=== PATIENT | female | born 1990 | race Caucasian/White ===

== ENCOUNTER 2024-05-06 16:14 | Emergency (ER) | payer MEDICAID, SELFPAY ==
[2024-05-06 16:18] VITALS: BP 118/84; PULSE 74; RESP 16; TEMP 36.5; O2SAT 100
[2024-05-06 17:01] VITALS: BP 111/72; O2SAT 100
--- NOTE | 2024-05-06 17:13 | ED.FEMALEGU ---
HPI - Female Genitourinary General Chief complaint: Vaginal Bleeding Stated complaint: 6 WKS PREG VAG BLEEDING Time Seen by Provider: 05/06/24 17:05 History of Present Illness HPI Narrative: 34-year-old female, LMP 03/21/2024, currently approximately 6 weeks presents to emergency department for vaginal bleeding in . Patient had a positive test 2 days ago at home. States she went to [place] emergency department because she did not believe this test. She had a positive blood test at that time was discharged home advised to follow-up with OBGYN. She contacted an OB talisha and Richy Paulson and was advised to come to the ED if she had any vaginal bleeding. States she had some brown tinged discharge earlier today but around 3:45 p.m. she went to the bathroom and when she wiped she noticed bright red and dark red blood on the toilet paper. When she wiped a 2nd time she said it was just brown tinged discharge. She has not had any bleeding since. She states she was while she was Rh negative with her last child is concerned that she may be rejecting this child. She reports suprapubic abdominal cramping. She denies concern for STDs, nausea vomiting, fever. Denies history of bleeding dyscrasias. states she has an appointment with OBGYN, Dr. Sloan, in 5 days. States her hCG level 2 days ago while she was at [place] was 303. Related Data Allergies Allergy/AdvReac Type Severity Reaction Status Date / Time No Known Allergies Allergy Verified 05/06/24 17:25 Review of Systems Review of Systems: All systems reviewed & are unremarkable except as noted in HPI and below Exam Narrative: GENERAL: Well-appearing, well-nourished, and in no acute distress. HEAD: Normocephalic, atraumatic. EYES: PERRLA and EOMI. ENT: Nares clear, no rhinorrhea or epistaxis. Mucous membranes moist. NECK: Supple. CHEST: Clear to auscultation. No respiratory distress. HEART: Regular rate and rhythm. No murmur heard. Normal peripheral pulses. ABDOMEN: Soft, nontender, nondistended, normal active bowel sounds. no rebound, guarding or rigidity. : external genitalia unremarkable. Vaginal vault with scant amount of blood in the vaginal vault. cervical os closed. No tissue, products of conception or clots visualized. No adnexal masses or tenderness. EXTREMITIES: Normal range of motion. No edema. SKIN: Warm, dry, no rash. NEURO: No focal deficits. Alert and oriented x3 Course Vital Signs Vital signs: Vital Signs Temperature 97.7 F 05/06/24 16:18 Pulse Rate 74 05/06/24 16:18 Respiratory Rate 16 05/06/24 16:18 Blood Pressure 118/84 05/06/24 16:18 Pulse Oximetry 100 05/06/24 16:18 Temperature 97.7 F 05/06/24 16:18 Pulse Rate 74 05/06/24 16:18 Respiratory Rate 16 05/06/24 16:18 Blood Pressure 115/77 05/06/24 17:46 Pulse Oximetry 100 05/06/24 17:46 MDM - Female Genitourinary MDM Narrative Medical decision making narrative: 34-year-old female who is currently 6 weeks presents to the emergency department for blood on her toilet paper when she wiped at 3:45 p.m. today. Triage vitals are stable. Exam significant for the above. CBC without leukocytosis. Hemoglobin 11.3 with a normal MCV, no prior for comparison. Chemistries are unremarkable. Beta hCG is 53.47. Coags are normal. UA unremarkable. Blood type A negative, RhoGAM provided. Beta hCG is 53.47 Which has decreased from reported 303 2 days ago while at [place]. Workup discussed with the patient. Bleeding is very mild on exam. Workup is consistent with incomplete . I advised her to call her OBGYN to follow-up closely and have beta-hCG rechecked in 48 hours. I discussed strict ED return precautions including inappropriate blood loss and signs or symptoms of septic . She is agreeable to plan verbalized understanding. Discharged in stable condition. Lab Data 05/06/24 17:28
[2024-05-06 17:16] VITALS: BP 113/82; O2SAT 95
[2024-05-06] MEDS: ACETAMINOPHEN 500 MG TABLET 1000 MG PO (17:26)
[2024-05-06 17:35] LABS: Basophils Percent Auto 0.7 % (0.2-1.2); Eosinophils Percent Auto 0.9 % (0-4.4); Hematocrit 33.6 % (37.0-47.0); Hemoglobin 11.3 g/dL (12.0-15.0); Immature Granulocyte Absolute 0.01 K/mm3 (0.00-0.031); Immature Granulocyte Percent A 0.2 % (0-0.5); Lymphocytes Absolute Auto 1.66 K/mm3 (0.9-3.2); Lymphocytes Percent Auto 36.3 % (18.3-44.2); Mean Corpuscular HGB Conc 33.6 g/dl (32-36); Mean Corpuscular Hemoglobin 32.3 pg (26-34); Monocytes Absolute Auto 0.4 K/mm3 (0.1-0.6); Monocytes Percent Auto 8.1 % (2.6-8.5); Neutrophils Absolute Auto 2.5 K/mm3 (1.3-6.7); Neutrophils Percent Auto 53.8 % (45.5-73.1); Platelet Count Result 191 k/mm3 (150-375); White Blood Count 4.6 K/mm3 (4.5-10.0)
[2024-05-06 17:46] VITALS: BP 115/77; O2SAT 100
[2024-05-06 17:46] LABS: Alanine Aminotransferase 17 U/L (6-35); Albumin Level 4.2 g/dL (3.5-5.1); Alkaline Phosphatase 68 U/L (38-126); Anion Gap 8 mmol/L (4-12); Aspartate Amino Transferase 20 U/L (14-36); Blood Urea Nitrogen 9 mg/dL (7-17); Carbon Dioxide 28 mmol/L (22-30); Chloride 102 mmol/L (98-107); Estimated CRCL calculation 111 ml/min; Estimated Glomerular Filt Rate > 60; Glucose 87 mg/dL (65-110); Potassium 3.5 mmol/L (3.4-5.0); Sodium 138 mmol/L (137-145)
[2024-05-06 17:47] LABS: Partial Thromboplastin Time 27.4 Seconds (22.3-36.8); Prothrombin Time 13.8 Seconds (11.1-14.7)
[2024-05-06 18:02] LABS: Beta HCG Quantitative 53.47 mIU/ML
[2024-05-06 18:12] LABS: Appearance Urine Clear (Clear); Bilirubin Urine Negative (Negative); Blood Urine Negative (Negative); Color Urine Yellow (Yellow); Glucose Urine UA Negative (Negative); Ketones Urine Negative (Negative); Leukocyte Esterase Ur Negative LEU/UL (Negative); Nitrate Urine Negative (Negative); Protein Urine Negative (Negative); Specific Grav Ur 1.022 (1.001-1.035); Urobilinogen Urine 0.2 mg/dL (<2.0); pH Urine 5.5 (5.0-9.0)
[2024-05-06 18:13] LABS: Add Urine Microscopic? NO
[2024-05-06] MEDS: RHO(D) IMMUNE GLOBULIN 300 MCG/2 ML SYRINGE IM (19:27)
== END 2024-05-06 19:30 | disposition home or self-care (01) ==
PROVIDERS: Emergency Provider Physician Assistant
DX: O03.4 Incomplete spontaneous abortion without complication (principal)
CPT/HCPCS: 36415; 80053; 81003; 84702; 85025; 85461; 85610; 85730; 86850; 86900; 86901; 90384; 96372; 99284; A9270; J2790

== ENCOUNTER 2024-05-18 09:02 | Outpatient (CLI) | payer MEDICAID, SELFPAY ==
--- NOTE | ~2024-05-18 | US_ITS ---
US OB <=14 wk fetus w TV Ordering provider: Amor Sloan MD History: . O02.1 - Missed . Comparison: None. Technique: Transabdominal and endovaginal ultrasound of the pelvis (Doppler ultrasound interrogation techniques used as needed for this exam.) FINDINGS: CERVIX: Normal. UTERUS: Measures 9.2x 3.5x 5.1 cm in length which is within normal limits and is anteverted. No myom etrial masses. ENDOMETRIUM: Normal in thickness measuring 8 mm. No intrauterine seen. No endometrial darline s, cysts or fluid. CUL DE SAC: Minimal free fluid. RIGHT OVARY: Normal in size measuring 5.1x 2.2x 4.4 cm. Normal echotexture. Doppler vascular flow pre sent. Follicles are noted with the largest measures 1.8 cm.. LEFT OVARY: Normal in size measuring 2.9x 1.4x 2.5 cm. Normal echotexture. Doppler vascular flow pres ent. Follicles are noted. ADNEXA: Normal. No mass. IMPRESSION: No intrauterine . Minimal fluid in the cul-de-sac. Bilateral ovarian follicles with the larg est on the right side measuring 1.8 cm. Otherwise, normal pelvic ultrasound. Reviewed, dictated and finalized at location A. IMPRESSION: No intrauterine . Minimal fluid in the cul-de-sac. Bilateral ovarian f ollicles with the largest on the right side measuring 1.8 cm. Otherwise, normal pelvic ultrasound.
== END 2024-05-18 09:03 ==
LOC: MICIMG 09:02
PROVIDERS: PCP Obstetrics & Gynecology; Visit Provider Obstetrics & Gynecology
DX: O02.1 Missed abortion (principal); N88.8 Other specified noninflammatory disorders of cervix uteri
CPT/HCPCS: 76801; 76817

== ENCOUNTER 2024-05-18 09:40 | Outpatient (CLI) | payer MEDICAID, SELFPAY ==
[2024-05-18 13:17] LABS: Beta HCG Quantitative < 2.39 mIU/ML
== END 2024-05-18 09:41 | disposition home or self-care (01) ==
PROVIDERS: PCP Obstetrics & Gynecology; Visit Provider Obstetrics & Gynecology
DX: O02.1 Missed abortion (principal)
CPT/HCPCS: 36415; 84702

== ENCOUNTER 2024-06-09 16:54 | Outpatient (CLI) | payer MEDICAID, SELFPAY | END 2024-06-09 16:55 | disposition home or self-care (01) | LOC: ANHLAB 16:56 | PROVIDERS: PCP Obstetrics & Gynecology; Visit Provider Obstetrics & Gynecology | DX: N91.2 Amenorrhea, unspecified (principal) | CPT/HCPCS: 36415; 84702 ==

== ENCOUNTER 2024-06-12 08:37 | Outpatient (CLI) | payer MEDICAID, SELFPAY | END 2024-06-12 08:38 | disposition home or self-care (01) | PROVIDERS: Visit Provider Obstetrics & Gynecology | DX: O20.0 Threatened abortion (principal) | CPT/HCPCS: 36415; 84702 ==

== ENCOUNTER 2024-07-27 10:31 | Outpatient (CLI) | payer OTHER, SELFPAY ==
[2024-07-27 10:54] LABS: Basophils Percent Auto 0.3 % (0.2-1.2); Eosinophils Absolute Auto 0.1 K/mm3 (0-0.3); Eosinophils Percent Auto 0.8 % (0-4.4); Hematocrit 34.4 % (37.0-47.0); Hemoglobin 11.9 g/dL (12.0-15.0); Immature Granulocyte Absolute 0.02 K/mm3 (0.00-0.031); Immature Granulocyte Percent A 0.3 % (0-0.5); Lymphocytes Absolute Auto 1.45 K/mm3 (0.9-3.2); Mean Corpuscular HGB Conc 34.6 g/dl (32-36); Mean Corpuscular Volume 95.3 fl (80-100); Monocytes Absolute Auto 0.5 K/mm3 (0.1-0.6); Monocytes Percent Auto 6.3 % (2.6-8.5); Neutrophils Absolute Auto 5.3 K/mm3 (1.3-6.7); Neutrophils Percent Auto 72.3 % (45.5-73.1); Platelet Count Result 205 k/mm3 (150-375); Red Blood Count 3.61 M/mm3 (4.2-5.4); Red Cell Distribution Width 12.5 % (11.5-14.5); White Blood Count 7.3 K/mm3 (4.5-10.0)
[2024-07-27 12:12] LABS: Hepatitis B Surface Antigen Negative (Negative); Rubella IgG Antibody 8.8 IU/ML
[2024-07-28 12:09] LABS: CMV IgG Antibody >10.00 U/mL
[2024-07-28 13:17] LABS: Rapid Plasma Reagin Non-Reactive (NonReactive)
[2024-08-07 08:25] LABS: CF Result NEGATIVE
== END 2024-07-27 10:32 | disposition home or self-care (01) ==
PROVIDERS: Student in an Organized Health Care Education/Training Program; Visit Provider Obstetrics & Gynecology
DX: N94.89 Other specified conditions associated with female genital organs and menstrual cycle (principal)
CPT/HCPCS: 36415; 81220; 84702; 85025; 86592; 86644; 86747; 86762; 86787; 86850; 86880; 86900; 86901; 87086; 87340

== ENCOUNTER 2024-10-08 09:32 | Emergency (ER) | payer MEDICAID, SELFPAY ==
--- NOTE | ~2024-10-08 | XR_ITS ---
XR shoulder RT min 2V 10/08/2024 10:21 Indication: Right shoulder pain after fall from ladder Procedure: 4 views right shoulder Comparison: No prior studies for comparison. Findings: There is a comminuted nondisplaced distal right clavicular fracture. Acromioclavicular join t intact. No other fractures or subluxation. No soft tissue abnormality. Impression: 1: Comminuted nondisplaced distal right clavicular fracture with intact acromioclavicular joint. Reviewed, dictated and finalized at location B. ING TECHNICIAN Impression: 1: Comminuted nondisplaced distal right clavicular fracture with intact acromio clavicular joint.
[2024-10-08 09:46] VITALS: BP 112/78; PULSE 81; RESP 16; TEMP 36.4; O2SAT 100
--- NOTE | 2024-10-08 09:55 | PC.NURSE ---
Patient reports she is currently taking penicillin d/t a dental infection.
[2024-10-08 10:21] VITALS: BP 111/71; PULSE 83; RESP 16; TEMP 36.3; O2SAT 100
--- NOTE | 2024-10-08 10:27 | ED.GENADULT ---
HPI - General Adult General Chief complaint: Extremity Injury, Upper Stated complaint: fell off a ladder, R shoulder pain 22 weeks preg Time Seen by Provider: 10/08/24 09:47 History of Present Illness HPI narrative: Patient is a 34-year-old female who presents ER with right shoulder pain. She was on the 3rd rung of a ladder yesterday messing with [place] lights when she is supposed to be feeding the dog when she fell landing on her posterior right shoulder. Sudden onset pain. She did not strike her head or lose consciousness. She is 22 weeks but did not fall on her belly. No vaginal bleeding or vaginal discharge. Has difficulty with using her right arm so she came to the ER today for further evaluation. Related Data Home Medications ?Medication ?Instructions ?Recorded ?Confirmed ?Last Taken ?Type vits no.126-ferrous fum tablet PO 07/13/24 10/05/24 Unknown History 28 mg iron-folic acid 800 mcg tablet (Classic ) Allergies Allergy/AdvReac Type Severity Reaction Status Date / Time No Known Allergies Allergy Verified 10/08/24 09:54 Review of Systems Review of Systems: All systems reviewed & are unremarkable except as noted in HPI and below Constitutional: Constitutional: Reports no additional constitutional complaints Cardiovascular: Cardiovascular: Reports no additional cardiovascular complaints Respiratory: Respiratory: Reports no additional respiratory complaints Musculoskeletal: Musculoskeletal: Reports arthralgias and Reports joint swelling Neurologic: Reports system reviewed and no additional complaints, except as documented PMF Past Medical History Medical History Suppression of menses Threatened Anxiety and depression Surgical History Surgical History History of lung biopsy 12 + years ago Family History Family History Sibling Diabetes mellitus Father Cerebrovascular accident Grandparent Breast cancer paternal grandmother Cerebrovascular accident paternal grand father Other Carcinoma of colon Social History Social History Smoking status: Never smoker Second hand tobacco smoke exposure: No Smoking end date: 10/21/20 Alcohol intake: never Substance use: former Substance use type: marijuana Last use: 2010 Do You Feel Safe in your Home?: Yes Lack of Transportation: No Lack of Food: Never True Current Housing: I Have Housing Concerned About Future Housing: No Difficulty Paying Gas/Electric Bills: No Difficulty Paying for Meds: No Currently Unemployed: No Education: Trade/Vocational Certificate Difficulty w/ Childcare or Family Care: No Living arrangements: other Additional living arrangements comments: single lives with boyfriend and child Occupation/Education: occupation 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 HEAD: Normocephalic, atraumatic. ENT: Mucous membranes moist. CHEST: Clear to auscultation. No respiratory distress. HEART: Regular rate and rhythm. Normal peripheral pulses. EXTREMITIES: Limited range of motion at the right shoulder due to swelling and pain at the lateral aspect of clavicle. No abnormality to the left upper extremity. Abdomen: Normal appearance without bruising rub SKIN: Warm, dry, no rash. NEURO: Alert and oriented x3. PSYCH: Normal mood and affect. Course Course Emergency Course: patient given a sling. Informed of results. Discharge home. Vital Signs Vital signs: Vital Signs Temperature 97.6 F 10/08/24 09:46 Pulse Rate 81 10/08/24 09:46 Respiratory Rate 16 10/08/24 09:46 Blood Pressure 112/78 10/08/24 09:46 Pulse Oximetry 100 10/08/24 09:46 Oxygen Delivery Room Air 10/08/24 09:46 Temperature 98.2 F 10/08/24 12:00 Pulse Rate 78 10/08/24 12:00 Respiratory Rate 17 10/08/24 12:00 Blood Pressure 114/69 10/08/24 12:00 Pulse Oximetry 100 10/08/24 12:00 Oxygen Delivery Room Air 10/08/24 10:21 Medical Decision Making Vital Signs Vital Signs: Vital Signs Temperature 97.6 F 10/08/24 09:46 Pulse Rate 81 10/08/24 09:46 Respiratory Rate 16 10/08/24 09:46 Blood Pressure 112/78 10/08/24 09:46 Pulse Oximetry 100 10/08/24 09:46 Oxygen Delivery Room Air 10/08/24 09:46 Temperature 98.2 F 10/08/24 12:00 Pulse Rate 78 10/08/24 12:00 Respiratory Rate 17 10/08/24 12:00 Blood Pressure 114/69 10/08/24 12:00 Pulse Oximetry 100 10/08/24 12:00 Oxygen Delivery Room Air 10/08/24 10:21 Imaging Data Radiologist's impression: ITS Impressions Shoulder X-Ray 10/08/24 10:23 Impression: 1: Comminuted nondisplaced distal right clavicular fracture with intact acromioclavicular joint. Discharge Plan Discharge Clinical Impression: Broken clavicle Patient Disposition: Home, Self-Care Condition: Stable Instructions: Clavicle Fracture (ED) Additional Instructions: Follow-up with Orthopedic surgery. Wear sling for comfort. Return the ER if you have additional concerns. Patient Language: Croatian Prescriptions: No Action Classic 28 mg iron- 800 mcg tablet PO metoclopramide HCl [Reglan] 5 mg tablet 5 mg PO DAILY Qty: 30 1RF Follow-up/Referrals: Kelivn Falk MD [Physician] - 1 Week UNKNOWN,DOCTOR [Primary Care Provider] -
[2024-10-08] MEDS: HYDROcodone/acetaminophen (*CRX) 5-325 MG TABLET 1 TAB PO (11:59)
[2024-10-08 12:00] VITALS: BP 114/69; PULSE 78; RESP 17; TEMP 36.8; O2SAT 100
== END 2024-10-08 12:36 | disposition home or self-care (01) ==
PROVIDERS: Emergency Provider Emergency Medicine
DX: O9A.212 Injury, poisoning and certain other consequences of external causes complicating pregnancy, second trimester (principal); S42.034A Nondisplaced fracture of lateral end of right clavicle, initial encounter for closed fracture; W11.XXXA Fall on and from ladder, initial encounter; Z3A.22 22 weeks gestation of pregnancy
CPT/HCPCS: 73030; 99284; A4565; A9270

== ENCOUNTER 2024-11-17 06:33 | Outpatient (RCR) | payer OTHER, SELFPAY ==
[2024-11-16 11:58] LABS: Basophils Percent Auto 0.1 % (0.2-1.2); Eosinophils Percent Auto 0.6 % (0-4.4); Hematocrit 31.2 % (37.0-47.0); Hemoglobin 10.4 g/dL (12.0-15.0); Immature Granulocyte Absolute 0.02 K/mm3 (0.00-0.031); Immature Granulocyte Percent A 0.3 % (0-0.5); Lymphocytes Absolute Auto 1.05 K/mm3 (0.9-3.2); Lymphocytes Percent Auto 15.4 % (18.3-44.2); Mean Corpuscular HGB Conc 33.3 g/dl (32-36); Mean Corpuscular Hemoglobin 32.1 pg (26-34); Mean Corpuscular Volume 96.3 fl (80-100); Mean Platelet Volume 9.5 fl (7.4-10.4); Monocytes Absolute Auto 0.3 K/mm3 (0.1-0.6); Monocytes Percent Auto 4.4 % (2.6-8.5); Neutrophils Absolute Auto 5.4 K/mm3 (1.3-6.7); Neutrophils Percent Auto 79.2 % (45.5-73.1); Platelet Count Result 196 k/mm3 (150-375); Red Blood Count 3.24 M/mm3 (4.2-5.4); Red Cell Distribution Width 12.5 % (11.5-14.5); White Blood Count 6.8 K/mm3 (4.5-10.0)
[2024-11-16 12:52] LABS: HIV 1/2 Ab P24 Ag Result Negative (Negative)
[2024-11-16 14:43] LABS: Glucose 1 Hour PP 50gm Dose 123 mg/dL
[2024-11-17 10:46] LABS: Rapid Plasma Reagin Non-Reactive (NonReactive)
[2024-11-17] MEDS: RHO(D) IMMUNE GLOBULIN 300 MCG/2 ML SYRINGE IM (18:49)
== END 2024-11-17 06:40 | disposition home or self-care (01) ==
LOC: ANHLAB 06:33
PROVIDERS: Visit Provider Obstetrics & Gynecology
DX: Z11.4 Encounter for screening for human immunodeficiency virus [HIV] (principal); Z11.3 Encounter for screening for infections with a predominantly sexual mode of transmission; O36.0190 Maternal care for anti-D [Rh] antibodies, unspecified trimester, not applicable or unspecified; Z3A.00 Weeks of gestation of pregnancy not specified
CPT/HCPCS: 36415; 82947; 85025; 85461; 86592; 86703; 86850; 86900; 86901; 90384; 96372; G0432; J2790

== ENCOUNTER 2025-01-06 15:37 | Outpatient (RCR) | payer OTHER, SELFPAY ==
[2025-01-06 16:42] VITALS: BP 103/68; PULSE 87
--- NOTE | 2025-01-06 19:40 | PM.OBTRLD ---
OB - Triage/Final Diagnosis Visit Information Date of evaluation: 01/06/25 Reason for evaluation: decreased movement and other (fall) Comments/Additional reasons for admission: I have assessed the risk for this patient, Kayleighrachel Maria, and determined that she would benefit from observation care. Evaluation Vital signs: Vital Signs - 24 hr 01/06/25 16:42 Pulse Rate 87 Blood Pressure [Left Arm] 103/68
== END 2025-04-06 23:59 | disposition home or self-care (01) ==
LOC: ANHOBOP 15:37
PROVIDERS: Visit Provider Obstetrics & Gynecology
DX: O36.8130 Decreased fetal movements, third trimester, not applicable or unspecified (principal); O99.891 Other specified diseases and conditions complicating pregnancy; W19.XXXA Unspecified fall, initial encounter; Z3A.35 35 weeks gestation of pregnancy
CPT/HCPCS: 59025

== ENCOUNTER 2025-02-08 06:46 | Inpatient (IN) | payer OTHER, SELFPAY ==
[2025-02-08] VITALS (38 sets, daily range): BP systolic 60–147; BP diastolic 15–113; PULSE 65–92; RESP 16; TEMP 36.6–36.9; O2SAT 98; BMI 46.6
--- NOTE | 2025-02-08 07:17 | LDADM ---
This patient, Kayleigh Maria, was admitted to Labor/Delivery/Recovery 108 on 02/08/25 at 06:46. Plans for labor, pain management and were discussed with patient. Patient/family oriented to hospital policies and general routines including ID bracelet, bed and alarms, visiting hours, pain management, procedures, bathroom and other care routines, personal items, smoking policy, room service/diet and guest tray routines, security routines, and visiting hours. Patient/Family are encouraged to report perceived risks to care and to ask questions if they do not understand what they are told or what they should do. See OBIX for further documentation.
--- NOTE | 2025-02-08 07:18 | WPDHPUPDATE1 ---
History and Physical Update Update Date/Time: 02/08/25 07:18 34 yo at 39w6d who presents for IOL. Her has been uncomplicated thus far. History and Physical has been reviewed, including an updated exam of the patient. There are NO changes in the patient's condition. Risks, benefits, and alternatives have been discussed and questions answered. Patient agrees to proceed with procedure. A/P admit to L&D routine admission orders Rh, neg- will need rhogam PP GBS positive, will initiate antibiotics with pitocin continuos EFM
[2025-02-08 07:38] LABS: Basophils Percent Auto 0.3 % (0.2-1.2); Eosinophils Absolute Auto 0.1 K/mm3 (0-0.3); Eosinophils Percent Auto 1.7 % (0-4.4); Hematocrit 31.5 % (37.0-47.0); Hemoglobin 10.5 g/dL (12.0-15.0); Immature Granulocyte Absolute 0.03 K/mm3 (0.00-0.031); Immature Granulocyte Percent A 0.5 % (0-0.5); Lymphocytes Absolute Auto 1.39 K/mm3 (0.9-3.2); Lymphocytes Percent Auto 21.3 % (18.3-44.2); Mean Corpuscular HGB Conc 33.3 g/dl (32-36); Mean Corpuscular Volume 92.9 fl (80-100); Mean Platelet Volume 11.5 fl (7.4-10.4); Monocytes Absolute Auto 0.6 K/mm3 (0.1-0.6); Monocytes Percent Auto 8.6 % (2.6-8.5); Neutrophils Absolute Auto 4.4 K/mm3 (1.3-6.7); Neutrophils Percent Auto 67.6 % (45.5-73.1); Platelet Count Result 175 k/mm3 (150-375); Red Blood Count 3.39 M/mm3 (4.2-5.4); Red Cell Distribution Width 13.1 % (11.5-14.5); White Blood Count 6.5 K/mm3 (4.5-10.0)
[2025-02-08] MEDS: AMPICILLIN 2 GM/NS 100 ML 2 GM/100 ML BAG IVPB (08:00)
[2025-02-08] MEDS: OXYTOCIN 30 UNITS/NS 500 ML 30 UNITS/500 ML BAG IV CONT (08:00)
[2025-02-08] MEDS: LACTATED RINGERS 1,000 ML 125 ML IV CONT (08:01)
[2025-02-08 08:19] LABS: Syphilis IgG/IgM Antibody Negative (Negative)
[2025-02-08 08:27] LABS: HIV 1/2 Ab P24 Ag Result Negative (Negative)
[2025-02-08] MEDS: AMPICILLIN 1 GM/NS 50 ML 1 GM/50 ML BAG IVPB ×2 (11:46→15:51)
--- NOTE | 2025-02-08 18:10 | P.PCNOB_ITS ---
OB - Vaginal Delivery Note Procedure Delivery date: 02/08/25 Induction method: Per Pitocin Protocol Delivery augmentation: Rupture of Membranes and Pitocin Delivery monitor: External FHT and Internal Uterine Route of delivery: Episiotomy description: None Laceration Description: Labial (Right) Delivery repair: vicryl Specimen: No Quantitative Blood Loss (ml): 100 Anesthesia type: None Disposition: Floor Complications: No immediate complications Narrative: Patient pushed for a spontaneous vaginal delivery. A nuchal cord was noted and delivered through. The fetus was delivered atraumatically and placed on the maternal abdomen. The cord was clamped and cut after 1 minute of life. The cord was double clamped and cut and a segment of cord was collected for cord gases. Cord blood was collected for blood type and Coomb's testing. The placenta delivered spontaneously and was noted to be intact. The perineum was inspected and noted to be intact. A right superficial labial laceration was noted. The area was anesthetized with 1% lidocaine. The laceration was re-approximated with 3-0 vicryl in a running locking fashion. The uterus was firm and good hemostasis was noted. [place] Baby Date of : 02/08/25 Time of : 17:42 Gestational Age by Date: 39 gender: Male presentation: vertex position: Right Occiput Anterior Placenta delivery description: Spontaneous Cord Vessel Description: 3 Vessels and Nuchal Cord score one minute: 9 score five minutes: 9
[2025-02-08] MEDS: OXYTOCIN 30 UNITS/NS 500 ML 30 UNITS/500 ML BAG 125 UNITS IV CONT (18:16)
[2025-02-08] MEDS: IBUPROFEN 600 MG TABLET PO (20:03)
[2025-02-08] MEDS: WITCH HAZEL 40 PADS 1 PAD TOPICAL (20:04)
[2025-02-08] MEDS: BENZOCAINE 20% AER SPR (*SP) 56 GM CAN 1 SPRAY TOPICAL (20:04)
--- NOTE | 2025-02-08 20:20 | OBPPTRN ---
Patient transferred to post room #286 via wheelchair. Oriented to unit, room, information board, rooming in, admission packet and security measures. Patient verbalizes understanding.
[2025-02-09 00:30] VITALS: BP 104/62; PULSE 59; RESP 14; TEMP 36.3; O2SAT 98
[2025-02-09 05:51] LABS: Hematocrit 29.5 % (37.0-47.0)
[2025-02-09 08:10] VITALS: BP 115/72; PULSE 64; RESP 18; TEMP 36.7; O2SAT 97
--- NOTE | 2025-02-09 09:00 | PC.NURSE ---
Introductions were made, then consulted with patient to assess needs related to . Discussed with mother her?plans to feed?her and the?experience so far. He has latched well several times and he is sleepy as expected for a . Resources provided for inpatient and outpatient services with the feeding sheet, mom/baby guide and name written on the communication board. Mother voiced understanding of information and will call if there is a request for assistance. Reported to the Primary RN.
[2025-02-09] MEDS: MULTIVIT/MIN/PREN/FOL AC/IRON TABLET 1 TAB PO (09:17)
--- NOTE | 2025-02-09 09:46 | PM.OBPNVD ---
OB - PN: Subj Subjective Date/time seen: 02/09/25 09:46 Patient comments: no complaints, pain well controlled and tolerating diet [place] feeding status: exclusively breast feeding Narrative: patient doing well this AM. No complaints. Pain is well controlled. She reports minimal bleeding. She is ambulating and voiding without difficulty. She is tolerating PO. She denies N/V, fever, chills. OB - PN: Obj Data Labs 02/09/25 04:55 Labs: Laboratory Results - last 24 hr 02/09/25 04:55 Hgb 10.0 L Hct 29.5 L OB - PN A/P Plan day: 1 Plan: routine care Comments: patient doing well H/H stable pt requests infant circumcision. Risks, benefits, alternatives discussed continue routine care Time Spent With Patient Time: Total time spent is greater than 50% in coordination of care (as documented) at patient's floor/unit and/or counseling patient: Time with patient: less than 15 minutes Review of Systems Review of Systems: All systems reviewed & are unremarkable except as noted in HPI and below Exam Const: General: comfortable and no acute distress Resp: Effort & Inspection: normal respiratory effort Cardio: Rate: regular rate GI: GI Palp: Yes Soft to palpation and No Tenderness to palpation present (GI) Auscultation: normal bowel sounds Other: fundus firm and below umbilicus. Psych: Affect: normal affect
--- NOTE | 2025-02-09 11:30 | PC.NURSE ---
Mother called out for a latch check. She was working to wake when I entered the room. He has been sleepy this morning. Mom positioned him in a cross cradle hold and we turned him more tummy to tummy for good alignment. It took a few tries before baby opened wide enough to latch and he suckled briefly and stopped. Mom holds her breast nicely and latched baby independently. He maintained the latch but would just hold the nipple in his mouth without sucking. We stimulated him and with some effort got him to suckle off and on. Mom is encouraged to continue to stimulate him at the breast for as long as he is able, even if it's only 5 minutes. He has been feeding well and is a term, healthy so no further intervention is needed at this time. Mom breastfed her first baby for a year. She states that she will not have to return to work soon but that she struggled to express milk with a pump last time. We reviewed that it can take practice and that some mother's will have trouble expressing milk to any pump. We reviewed flange sizing and we will measure her before discharge. RN updated.
--- NOTE | 2025-02-09 11:56 | P.DS_ITS ---
DS: Admitting Diagnosis Discharge Date 02/09/25 Admitting Diagnosis intrauterine at term DS: Discharge Diagnosis Discharge Diagnosis (1) Normal vaginal delivery: Code(s): O80 - Encounter for full-term uncomplicated delivery Status: Acute OB - DS: Summary OB Procedures : None OB Procedures Intrapartum: Spontaneous Vag Delivery OB Procedures: : None Peripartum Data Delivery Method: Natural Vaginal Laceration Description: Labial (Right) Episiotomy description: None complications: none Status at Discharge Functional status at discharge: independent ambulation Overall status at discharge: patient is back to baseline Time Spent with Patient Time attestation: Total time spent providing and/or coordinating discharge services: Time spent: Less than 30 minutes Exam Const: General: comfortable and no acute distress Resp: Effort & Inspection: normal respiratory effort Auscultation: clear to auscultation bilaterally Cardio: Rate: regular rate GI: GI Palp: Yes Soft to palpation Auscultation: normal bowel sounds Other: Fundus firm below umbilicus Psych: Appearance: grossly normal Mental Status: mental status grossly normal Affect: normal affect DS: Data Data Completed and Pending Labs on day of discharge: Labs from last 24 hours 02/09/25 04:55 Hgb 10.0 L Hct 29.5 L Discharge Plan Discharge Discharging Clinician: Stanley Landaverde Patient Disposition: Home Activity: as tolerated and pelvic rest Diet: regular Patient Instructions: Antibiotic Form, Vaginal Delivery (DC) Patient Language: Armenian Stand Alone Forms: General Discharge Information Follow-up/Referrals: Stanley Landaverde MD [Physician] - Discharge Medications: New acetaminophen 500 mg tablet 500 mg PO Q6H PRN (Reason: pain) Qty: 30 0RF ibuprofen 600 mg tablet 600 mg PO Q6H PRN (Reason: pain) Qty: 30 0RF Continued Classic 28 mg iron- 800 mcg tablet 1 tablet PO DAILY Date of admission: 02/08/25 06:46 Primary Care Provider: UNKNOWN,DOCTOR Admitting Provider: Stanley Landaverde Attending physician on admission: Stanley Landaverde Condition: Stable
[2025-02-09 12:50] VITALS: BP 121/61; PULSE 72; RESP 16; TEMP 36.4; O2SAT 96
[2025-02-09 19:36] VITALS: BP 111/64; PULSE 71; RESP 16; TEMP 36.6; O2SAT 96
[2025-02-11 11:28] VITALS: BP 113/65; PULSE 67; RESP 18; TEMP 36.7; O2SAT 98
== END 2025-02-09 21:55 | disposition home or self-care (01) | DRG 560 ==
LOC: ANHLDR 06:47 → ANHOB2 20:35
PROVIDERS: Admitting Provider Student in an Organized Health Care Education/Training Program; Visit Provider Student in an Organized Health Care Education/Training Program
DX: O99.824 Streptococcus B carrier state complicating childbirth (principal); Z37.0 Single live birth; Z3A.39 39 weeks gestation of pregnancy; O70.0 First degree perineal laceration during delivery; O69.81X0 Labor and delivery complicated by cord around neck, without compression, not applicable or unspecified; O26.893 Other specified pregnancy related conditions, third trimester; Z67.91 Unspecified blood type, Rh negative
CPT/HCPCS: 36415; 85014; 85018; 85025; 86593; 86703; 86850; 86900; 86901; A9270; G0432; J0290; J2590; J7120